=== PATIENT | male | born 1985 | race Caucasian/White ===

== ENCOUNTER → 2020-01-30 11:19 | Outpatient (BNVA) | payer OTHER, SELFPAY | PROVIDERS: Visit Provider Nurse Practitioner Family | DX: R31.9 Hematuria, unspecified (principal); R30.0 Dysuria; R03.0 Elevated blood-pressure reading, without diagnosis of hypertension | CPT/HCPCS: 81003 ==

== ENCOUNTER → 2020-02-21 12:08 | Outpatient (BNVA) | payer OTHER, SELFPAY | PROVIDERS: Visit Provider Nurse Practitioner Family | DX: M25.572 Pain in left ankle and joints of left foot (principal) | CPT/HCPCS: 73610 ==